=== PATIENT | female | born 1965 | race Caucasian/White ===

== ENCOUNTER 2019-11-26 08:57 | Emergency (ER) | payer BC, SELFPAY ==
--- NOTE | ~2019-11-26 | XR_ITS ---
EXAMINATION: XR knee LT min 4V EXAM DATE: 11/26/2019 09:17 INDICATION: Initial encounter following injury, with pain of the left knee. TECHNIQUE: Left knee frontal, crosstable lateral, orthogonal oblique projections for interpretation. There is no prior study for comparison. FINDINGS: No evidence osteochondral defect or joint body in the left knee joint. There are no acute fractures or dislocations identified. There is no subcutaneous gas. There is moderate-sized joint effusion. There are no radiopaque foreign bodies. There is mild to moderate primary osteoarthritis . IMPRESSION: 1. XR knee LT min 4V exam without acute osseous findings. 2. Moderate-sized joint effusion or hemarthrosis. 3. Mild to moderate osteoarthritis. Reviewed, dictated and finalized at location B. RE PHOTOGRAPHER
--- NOTE | 2019-11-26 09:01 | ED_ITS ---
I attest that this documentation has been prepared under the direction and in the presence of Rob Michel DO. Jayy Kerns Scribe 11/26/19;09:01 HPI - Extremity Injury (Lower) General Chief Complaint: Extremity Injury, Lower Stated Complaint: Fell yesterday, L knee pain Time Seen by Provider: 11/26/19 08:58 Source: patient and RN notes reviewed Mode of arrival: ambulatory Limitations: no limitations History of Present Illness HPI Narrative: Pt is a 54 y/o female who presents to the ED with c/o lt knee injury happening yesterday. She notes that she has a Hx of a lt knee injury 10 years ago, but states that she never received surgery to repair the injury. Pt notes that she was getting out of her shower yesterday when she slipped and fell, injuring her lt knee. Pt states that she has had pain diffusely throughout her lt knee ever since the fall. She denies any nausea, vomiting, or other symptoms accompanying her pain. Pt states that she hasn't taken any pain m edications this morning. MD complaint: knee injury Onset (ago): day(s) (1) Injury: Left: knee Type of Injury: unknown Place: home Context: fall Associated symptoms: other (lt knee pain) Review of Systems Review of Systems: All systems reviewed & are unremarkable except as noted in HPI and below Gastrointestinal: Gastrointestinal: Denies nausea and Denies vomiting Musculoskeletal: Musculoskeletal: Reports arthralgias (lt knee pain) [facility] Past Medical History Medical History (Updated 11/26/19 @ 09:37 by Rob Michel DO) Healthy female adult Surgical History Surgical History (Updated 11/26/19 @ 09:32 by Jayy Kerns) No significant past surgical history Social History Social History (Updated 11/26/19 @ 09:32 by Jayy Kerns) Smoking status: Never smoker Exam Narrative: Exam Narrative: APPEARANCE: No acute distress, nontoxic, resting in bed Eyes: EOMI HEENT: Normocephalic, atraumatic, RESPIRATORY: No respiratory distress MUSCULOSKELETAl: Tender over the left anterior medial lateral knee, mild swelling with no ecchymosis, pain with flexion greater than 45 degrees, no tenderness of the ankle or hip, dorsalis pedis pulse 2+, neurovascular intact NEURO: Awake and alert. Following commands, speech normal, no focal deficits SKIN:: Warm, dry. Normal Color no rash or lesions Course Course Emergency Course: Discussed with patient results of workup and diagnosis. Discussed need for follow-up with primary care, proper use of medication, and reasons to return to the emergency department. Patient understands and agrees to current treatment plan MDM - Extremity Injury (Lower) Imaging Data Radiologist's impression: Impressions Knee X-Ray 11/26/19 09:22 IMPRESSION: 1. XR knee LT min 4V exam without acute osseous findings. 2. Moderate-sized joint effusion or hemarthrosis. 3. Mild to moderate osteoarthritis. Discharge Plan Discharge Clinical Impression: Left knee sprain Patient Disposition: Home, Self-Care Condition: Stable Instructions: Antibiotic Form, Knee Sprain (ED) Additional Instructions: Return for increasing pain, numbness or tingling in the extremities or any other symptoms of concern Prescriptions: New ibuprofen [IBU] 600 mg tablet 600 mg PO Q6H PRN (Reason: pain) Qty: 20 RF: 0 Follow-up/Referrals: Wendy,Van Ocasio MD [Primary Care Provider] - She
[2019-11-26 09:18] VITALS: BP 230/94; PULSE 66; RESP 16; TEMP 36.6; O2SAT 98
--- NOTE | 2019-11-26 09:44 | PC.NURSE ---
EDP notified about Pt. hypertension. Pt. suppose to be on blood pressure medication but does not take it. Pt. given referral to primary care to start back up on blood pressure medication.
[2019-11-26] MEDS: IBUPROFEN 600 MG TABLET PO (09:45)
[2019-11-26 09:55] VITALS: BP 230/107; PULSE 88; RESP 16; O2SAT 98
== END 2019-11-26 09:55 | disposition home or self-care (01) ==
PROVIDERS: Emergency Provider Emergency Medicine; PCP Internal Medicine
DX: S83.92XA Sprain of unspecified site of left knee, initial encounter (principal); W18.2XXA Fall in (into) shower or empty bathtub, initial encounter
CPT/HCPCS: 73564; 99283; A9270